=== PATIENT | female | born 1945 | race Caucasian/White ===

== ENCOUNTER 2019-04-21 13:00 | Outpatient (RCR) | payer MEDICARE | END 2019-04-22 | LOC: PT 13:00 | PROVIDERS: ATTEND Orthopaedic Surgery | DX: M25.561 Pain in right knee (principal); M76.31 Iliotibial band syndrome, right leg ==

== ENCOUNTER 2019-05-05 13:00 | Outpatient (RCR) | payer MEDICARE | END 2019-05-22 | LOC: PT 13:00 | PROVIDERS: ATTEND Orthopaedic Surgery | DX: M25.561 Pain in right knee (principal); M76.31 Iliotibial band syndrome, right leg ==